=== PATIENT | female | born 1995 | race Caucasian/White ===

== ENCOUNTER 2019-04-23 22:31 | Emergency (ER) | payer OTHER ==
[~2019-04-23] VITALS: Ht 162.6 cm; Wt 23.9 kg
[~2019-04-23 22:31] MED LIST: CEPH-443 PO; LACT1CAP57 PO; PRED20TA PO
[2019-04-23 22:37] VITALS: BP 117/73; RESP 18; Ht 162.6 cm; Wt 23.9 kg
[2019-04-24] MEDS ORDERED: predniSONE 20 MG TAB PO ONE (01:00)
[2019-04-24 01:28] VITALS: PULSE 111
[2019-04-24] MEDS ORDERED: LORAZEPAM 1 MG TAB PO ONE (01:30)
== END 2019-04-24 01:30 | disposition home or self-care (01) ==
LOC: FTE 22:31
DX: R22.32 Localized swelling, mass and lump, left upper limb (principal)
CPT/HCPCS: 81025; J7512; Z7502; Z7610; 99283